=== PATIENT | male | born 1985 | race Caucasian/White ===

== ENCOUNTER → 2016-07-03 | Outpatient (CLI) | payer SELFPAY ==
--- NOTE | 2016-07-03 15:22 | REP ---
RIGHT KNEE SERIES: Five views of the right knee are performed. There is no evidence of acute fracture, dislocation or intrinsic bone disease. Joint spaces are normal. There is no joint effusion. IMPRESSION: Essentially negative right knee series. Signed by Anthony Connolly MD 07/04/2016 06:28 P
== END ==
LOC: M ADAMS 14:38
PROVIDERS: ATTEND Physician Assistant
DX: M25.562 Pain in left knee (principal)

== ENCOUNTER 2019-12-05 19:32 | Emergency (ER) | payer SELFPAY ==
[~2019-12-05] VITALS: Ht 172.7 cm; Wt 70.0 kg
[2019-12-05 19:39] VITALS: BP 140/88
[2019-12-05] MEDS ORDERED: ceFAZolin SOD 2 GM in IV 1 EA IV ONE (20:30)
[2019-12-05] MEDS ORDERED: ONDANSETRON 4MG/2ML VIAL IV ONE (20:30)
[2019-12-05] MEDS ORDERED: MORPHINE 4 MG/ML 1ML VIAL/SYRINGE (J2270) IV ONE (21:15)
[2019-12-05] MEDS ORDERED: BOOSTRIX/ADACEL VACCINE (DIPHTH/PERTUSS/ACELL/TETANUS) 0.5ML SYR IM ONE (21:15)
[2019-12-05] MEDS ORDERED: NS 1,000 ML IV ONE (21:45)
[2019-12-05] MEDS ORDERED: LIDOCAINE 1% MDV 20ML VIAL IM ONE (22:00)
[2019-12-05] MEDS ORDERED: KEFL500C17 PO (23:09)
--- NOTE | 2019-12-06 08:01 | REP ---
Clinical: Trauma. Technique: AP, lateral, bilateral oblique views of the right fourth digit. Findings: Comminuted fracture of the terminal tuft/distal phalanx with displaced fragments and overlying soft tissue swelling/injury noted. Impression: Crush injury involving the terminal tuft 4th digit. Electronically Signed by Shaun Horowitz MD 12/06/2019 07:52 A
== END 2019-12-05 23:54 | disposition home or self-care (01) ==
LOC: M ED 19:32
DX: S62.634B Displaced fracture of distal phalanx of right ring finger, initial encounter for open fracture (principal); W23.1XXA Caught, crushed, jammed, or pinched between stationary objects, initial encounter; Y92.9 Unspecified place or not applicable; Y93.9 Activity, unspecified; Y99.9 Unspecified external cause status
CPT/HCPCS: 11750; 12002; 73140; 90471; 90715; 96361; 96365; 96375; 99284; J0690; J2270; J2405